=== PATIENT | female | born 1970 ===

== ENCOUNTER 2020-12-06 20:02 | Emergency (ER) | payer MEDICAID ==
[~2020-12-06] VITALS: Ht 12.7 cm; Wt 63.6 kg
[2020-12-06 20:10] VITALS: BP 113/75
== END 2020-12-06 22:00 ==
LOC: ER 20:03
DX: S00.81XA Abrasion of other part of head, initial encounter (principal); F10.129 Alcohol abuse with intoxication, unspecified; W19.XXXA Unspecified fall, initial encounter; Y93.89 Activity, other specified; Y92.89 Other specified places as the place of occurrence of the external cause; Y99.8 Other external cause status; Y90.9 Presence of alcohol in blood, level not specified
CPT/HCPCS: 70450; 72125; 99285